=== PATIENT | female | born 1965 | race Caucasian/White ===

== ENCOUNTER 2022-04-11 10:22 | Outpatient (CLI) | payer BC, SELFPAY ==
[2022-04-11 14:30] LABS: Hepatitis C Virus Antibody* Negative (Negative)
[2022-04-11 14:34] LABS: HIV 1/2/P24 Combo Screen* Negative (Negative)
[2022-04-11 15:40] LABS: Albumin* 4.2 g/dL (3.3-5.0); Chloride* 107 mmol/L (96-114); Sodium* 140 mmol/L (135-149)
[2022-04-11 15:41] LABS: Potassium* 4.5 mmol/L (3.6-5.1)
[2022-04-11 15:43] LABS: Alanine Aminotransferase* 14 U/L (4-35); Alkaline Phosphatase* 82 U/L (40-150); Aspartate Amino Transferase* 19 U/L (12-35); Bilirubin Total* 0.3 mg/dL (0.1-1.5); Blood Urea Nitrogen* 13 mg/dL (7-30); Carbon Dioxide* 27 mmol/L (20-32); Cholesterol* 177 mg/dL (90-199); Creatinine* 0.8 mg/dL (0.5-1.5); Estimated Glomerular Filt Rate 85 ml/min; Total Protein* 6.4 g/dL (6.0-8.3); Triglycerides* 84 mg/dL (40-149)
[2022-04-11 15:44] LABS: Calcium* 9.6 mg/dL (8.4-10.6); HDL Cholesterol* 61 mg/dL (>=50); LDL Cholesterol Calculated 99 mg/dL (<100)
[2022-04-11 16:00] LABS: Glucose* 93 mg/dL (60-115)
[2022-04-11 16:17] LABS: Chlamydia DNA Amplified* NOT DETECTED (No Detected); GC DNA Amplified* NOT DETECTED (No Detected)
[2022-04-14 01:02] LABS: Rapid Plasma Reagin (RPR) Non Reactive (Non Reactive)
== END 2022-04-11 10:23 | disposition home or self-care (01) ==
PROVIDERS: Visit Provider Family Medicine
DX: Z01.419 Encounter for gynecological examination (general) (routine) without abnormal findings (principal); Z13.6 Encounter for screening for cardiovascular disorders; Z11.3 Encounter for screening for infections with a predominantly sexual mode of transmission; Z11.59 Encounter for screening for other viral diseases
CPT/HCPCS: 80053; 80061; 86592; 86703; 86803; 87491; 87591

== ENCOUNTER 2022-04-22 09:36 | Outpatient (CLI) | payer BC, SELFPAY ==
--- NOTE | 2022-04-22 09:45 | CRLHL7_ITS ---
For Patients: As a result of the Cures Act, medical imaging exams and procedure reports are released immediately into your electronic medical record. You may view this report before your referring provider. If you have questions, please contact your health care provider. DIGITAL DIAGNOSTIC BILATERAL MAMMOGRAM USING TOMOSYNTHESIS AND COMPUTER-AIDED DETECTION CLINICAL HISTORY: LEFT breast non-healing skin rash. COMPARISON: 01/01/2021, 11/09/2018, 06/09/2015. TECHNIQUE: Digital BILATERAL mammogram in four projections. Tomosynthesis and CAD utilized. BREAST COMPOSITION: There are areas of scattered fibroglandular density. FINDINGS: 3D CC/MLO mammograms submitted bilaterally. Normal fibroglandular tissue. No suspicious masses or architectural distortion. Benign calcifications. No adenopathy. IMPRESSION: Normal BILATERAL mammograms. No findings concerning for malignancy. RECOMMENDATIONS: Clinical follow-up. Routine screening mammography. Results and recommendations discussed with the patient. BI-RADS Category 2: Benign A lay language report of this examination will be provided to the patient. Dictated by Vern Finch MD @ 04/22/2022 10:57:25 AM /Dictated by: Vern Finch MD @ 04/22/2022 10:57:00 AM (Electronically Signed)
== END 2022-04-22 09:37 | disposition home or self-care (01) ==
LOC: MAMMO 09:37
PROVIDERS: Visit Provider Family Medicine
DX: R21 Rash and other nonspecific skin eruption (principal); L98.9 Disorder of the skin and subcutaneous tissue, unspecified
CPT/HCPCS: 77066; G0279

== ENCOUNTER 2023-02-16 03:06 | Emergency (ER) | payer BC, SELFPAY ==
[2023-02-16] VITALS (7 sets, daily range): BP systolic 113–142; BP diastolic 60–77; PULSE 61–74; RESP 16–18; TEMP 36.7–36.8; O2SAT 96–99
--- NOTE | 2023-02-16 03:09 | CRLHL7_ITS ---
For Patients: As a result of the Century Cures Act, medical imaging exams and procedure reports are released immediately into your electronic medical record. You may view this report before your referring provider. If you have questions, please contact your health care provider. INDICATION: Left sided abdominal pain since yesterday TECHNIQUE: CT Abdomen and pelvis with i.v. contrast. Coronal and sagittal reformats were obtained. CONTRAST: 92 mL Isovue 370 COMPARISON: None FINDINGS: Lower chest: Unremarkable. Liver: Scattered hepatic cysts are present with the largest in the left lateral segment measuring 3.5 cm. Spleen: Unremarkable. Pancreas: Unremarkable. Gallbladder: A punctate calcified gallstone is noted. Kidney: Small calyceal densities are present bilaterally which may be due to early excretion of contrast or small intrarenal stones. Adrenal: Unremarkable. Bowel: Diverticulosis of the descending and sigmoid colon is noted. Mild wall thickening of the gastric antrum is suspected. Gastritis or peptic ulcer disease and confirmation with barium GI series or endoscopy is recommended. The appendix is normal in appearance and size. Vascular: Unremarkable. Lymph: Unremarkable. Peritoneum: Unremarkable. No pneumoperitoneum is seen. No significant ascites is noted. Pelvis: There are two fibroids present in the uterine fundus with exophytic lesion measuring 1.5 cm. Soft tissue: Unremarkable. Bone: Grade 1 anterolisthesis of L3-4 is present. IMPRESSION: 1. Mild wall thickening of the gastric antrum is suspected. This may be due to a peristaltic wave or Dictated by Aron Richard MD @ 02/16/2023 3:51:41 AM Please note that all CT scans at this facility use dose modulation, iterative reconstruction, and/or weight-based dosing when appropriate to reduce radiation dose to as low as reasonably achievable. Dictated by: Aron Richard MD @ 02/16/2023 03:51:46 (Electronically Signed)
--- NOTE | 2023-02-16 03:14 | ED_ITS ---
HPI - Abdominal Pain General Time Seen by Provider: 03:14 Date Seen: 02/16/23 Chief Complaint: Abdominal Pain Stated Complaint: left side abdominal pain Time Seen by Provider: 02/16/23 03:07 Source: patient, RN notes reviewed and old records reviewed Mode of arrival: ambulatory Limitations: no limitations History of Present Illness HPI narrative: 57-year-old female who comes in with left-sided abdominal pain this started last night. Worse with movement. No nausea, vomiting, diarrhea, blood in the stools, fever, chills. Has not taken any medication for this. Denies prior surgeries. Related Data Previous Rx's Medication Instructions Recorded bupropion HCl 150 mg 24 hr tablet, 150 mg PO QAM #90 tabs 09/19/22 extended release (Wellbutrin XL) fluoxetine 10 mg capsule 10 mg PO QDAY #90 caps 09/19/22 gabapentin 100 mg capsule 100 mg PO TID #30 caps 09/19/22 trazodone 50 mg tablet 25 - 50 mg (0.5 - 1 x 50 mg) PO 09/19/22 QHS PRN insomnia #90 tabs pantoprazole 40 mg tablet,delayed 40 mg PO DAILY #30 tabs 02/16/23 release (Protonix) sucralfate 1 gram tablet (Carafate) 1 g PO QID #28 tabs 02/16/23 Allergies Allergy/AdvReac Type Severity Reaction Status Date / Time aspirin Allergy Severe Hives Verified 02/16/23 03:25 Review of Systems Status of ROS Reports: 10 or more systems reviewed and unremarkable except as noted in History and below PFSH PFSH Medical History (Updated 02/16/23 @ 03:56 by Dariel Chaney MD) Depression ?F32.A - Depression, unspecified (ICD-10) Anxiety ?F41.9 - Anxiety disorder, unspecified (ICD-10) Surgical History History of colonoscopy with polypectomy ?Z98.890 - Other specified postprocedural states (ICD-10) ?Z86.010 - Personal history of colonic polyps (ICD-10) Family History (Updated 04/05/22 @ 13:21 by Priscilla Steve ~ PSR) Maternal Grandmother Breast cancer Mother Mental disorder Social History (Updated 10/18/22 @ 13:22 by Priscilla Steve ~ PSR) Narrative: Non smoker Does not use illicit drugs Does not drink alcohol Smoking Status: Never smoker Second hand tobacco smoke exposure: No How often do you have a drink containing alcohol: never How often do you have six or more drinks on one occasion: Never AUDIT-C Alcohol total score: 0 Non-prescribed substance use: denies use Little interest or pleasure in doing things: not at all Feeling down, depressed, or hopeless: not at all Exam Narrative: Exam Narrative: General: Well-developed and well-nourished, no acute distress Head: Atraumatic and normocephalic Eyes: Pupils are equal reactive, extraocular motions intact, conjunctiva clear ENT: External nose and ears are normal, posterior pharynx without erythema or exudate Neck: No midline cervical tenderness, full spontaneous range of motion the neck, trachea midline, no adenopathy Heart: Regular rate and rhythm no murmurs or thrills Lungs: Clear to auscultation bilaterally without wheezes or crackles Abdomen: Soft, left lower quadrant and left mid abdominal tenderness, nondistended with active bowel sounds Musculoskeletal: No tenderness, deformity, or edema Neurologic: Awake, alert, and oriented x3, no gross focal neurologic deficits, cranial nerves intact as tested Psych: Mood and affect are appropriate Skin: No rashes Const: Vital Signs, click to edit/add: Vital Signs - 24 hr 02/16/23 03:20 02/16/23 03:23 02/16/23 03:23 Temperature 98.2 F 98.2 F Pulse Rate 61 Pulse Rate [Right Pulse Oximeter] 68 Respiratory Rate 18 16 Blood Pressure 113/60 Blood Pressure [Ri ght Upper Arm] 142/77 H Pulse Oximetry 99 96 Oxygen Delivery Me thod Room Air 02/16/23 03:34 Temperature 98.2 F Pulse Rate Pulse Rate [Right Pulse Oximeter] 64 Respiratory Rate 16 Blood Pressure Blood Pressure [Ri ght Upper Arm] 113/60 Pulse Oximetry 98 Oxygen Delivery Me thod Room Air Course Course Hospital Course: Patient seen examined, prior records are reviewed. Patient presents today with left-sided abdominal pain. On exam, vital a stable with no hypotension or fever, left mid abdominal tenderness. Symptoms are most consistent with diverticulitis, consider colitis, pancreatitis, ureteral stone as well. Labs in Toradol ordered along with CT scan. Reevaluation(s) Time of Reevaluation #1: 03:48 Reevaluation #1: Labs independently interpreted by me demonstrate normal CBC, reassuring basic panel, reassuring hepatic panel, normal lactate. CT scan demonstrates mild gastritis or peptic ulcer disease. Patient will be started on Carafate and Protonix and stable for discharge. Vital Signs Vital signs: Initial Vital Signs Temperature 98.2 F 02/16/23 03:20 Temperature Source Temporal Artery Scan 02/16/23 03:20 Vital Signs Temperature 98.2 F 02/16/23 03:20 Temperature 98.2 F 02/16/23 03:34 Pulse Rate 64 02/16/23 03:34 Respiratory Rate 16 02/16/23 03:34 Blood Pressure 113/60 02/16/23 03:34 Pulse Oximetry 98 02/16/23 03:34 Oxygen Delivery Method Room Air 02/16/23 03:34 MDM - Abdominal Pain Lab Data Labs: Lab Results 02/16/23 Range/Units 03:15 WBC 7.96 (4.50-11.00) K/uL RBC 4.28 (4.00-5.20) m/uL Hgb 12.3 (12.0-16.0) gm/dL Hct 38.3 (33.0-51.0) % MCV 90 (80-100) fL MCH 29 (26-34) pg MCHC 32 (32-36) gm/dL RDW Coeff of Li 13.6 (11.5-15.5) % Plt Count 285 (140-440) K/uL Neut % (Auto) 57.4 (42.0-72.0) % Lymph % (Auto) 31.7 (20-44) % [place] % (Auto) 6.5 (0.0-11.0) % Eos % (Auto) 3.1 (0.0-7.0) % Baso % (Auto) 0.4 (0.0-3.0) % Neut # (Auto) 4.57 (1.7-7.0) K/uL Lymph # (Auto) 2.52 (0.90-2.90) K/uL [place] # (Auto) 0.50 (0.00-0.90) K/UL Eos # (Auto) 0.25 (0.00-0.50) K/uL Baso # (Auto) 0.03 (0.00-0.30) K/uL Abs Immat Gran (auto) 0.07 (0.00-0.30) K/uL Imm/Tot Granulo (auto) 0.9 % Sodium 142 (135-149) mmol/L Potassium 4.4 (3.6-5.1) mmol/L Chloride 105 (96-114) mmol/L Carbon Dioxide 30 (20-32) mmol/L Anion Gap 7 (7-15) mEq/L BUN 21 (7-30) mg/dL Creatinine 1.0 (0.5-1.5) mg/dL Estimated Creat Clear 56.71 Estimated GFR 65 ml/min Glucose 91 (60-115) mg/dL Lactate 0.7 (0.5-1.9) mmol/L Calcium 9.5 (8.4-10.6) mg/dL Total Bilirubin 0.2 (0.1-1.5) mg/dL Direct Bilirubin 0.1 (0.0-0.5) mg/dL AST 23 (12-35) U/L ALT 18 (4-35) U/L Alkaline Phosphatase 89 (40-150) U/L Total Protein 6.7 (6.0-8.3) g/dL Albumin 4.0 (3.3-5.0) g/dL Discharge Plan Discharge Clinical Impression: Gastritis Patient Disposition: Home, Self-Care Condition: Stable Instructions: Gastritis (DC), Diet for Stomach Ulcers and Gastritis (ED) Activity Level: No Restrictions Discharge Diet: Other Prescriptions: New sucralfate [Carafate] 1 gram tablet 1 g PO QID Qty: 28 0RF pantoprazole [Protonix] 40 mg tablet,delayed release (DR/EC) 40 mg PO DAILY Qty: 30 0RF No Action fluoxetine 10 mg capsule 10 mg PO QDAY Qty: 90 3RF Rx Instructions: disp tab if cheaper bupropion HCl [Wellbutrin XL] 150 mg tablet extended release 24 hr 150 mg PO QAM Qty: 90 3RF trazodone 50 mg tablet 25 - 50 mg PO QHS PRN (Reason: insomnia) Qty: 90 3RF gabapentin 100 mg capsule 100 mg PO TID Qty: 30 12RF Follow Up/Referrals: Jodi Tran MD [Primary Care Provider] - Stand Alone Forms: MyHealth Info Instructions
[2023-02-16 03:20] LABS: Lactate* 0.7 mmol/L (0.5-1.9)
[2023-02-16] MEDS: KETOROLAC 15 MG/ML inj IVP (03:20)
[2023-02-16 03:22] LABS: Basophils Absolute Auto 0.03 K/uL (0.00-0.30); Basophils Percent Auto 0.4 % (0.0-3.0); Eosinophils Absolute Auto 0.25 K/uL (0.00-0.50); Eosinophils Percent Auto 3.1 % (0.0-7.0); Hematocrit 38.3 % (33.0-51.0); Hemoglobin* 12.3 gm/dL (12.0-16.0); Immature Granulocytes Abs Auto 0.07 K/uL (0.00-0.30); Immature Granulocytes Pct Auto 0.9 %; Lymphocytes Absolute Auto 2.52 K/uL (0.90-2.90); Lymphocytes Percent Auto 31.7 % (20-44); Mean Corpuscular HGB Conc 32 gm/dL (32-36); Mean Corpuscular Hemoglobin 29 pg (26-34); Mean Corpuscular Volume 90 fL (80-100); Monocytes Percent Auto 6.5 % (0.0-11.0); Neutrophils Absolute Auto 4.57 K/uL (1.7-7.0); Neutrophils Percent Auto 57.4 % (42.0-72.0); Platelet Count* 285 K/uL (140-440); RDW Coefficient of Variation % 13.6 % (11.5-15.5); Red Blood Count 4.28 m/uL (4.00-5.20); White Blood Count* 7.96 K/uL (4.50-11.00)
[2023-02-16 03:25] LABS: Slide Review Reflex No
[2023-02-16 03:37] LABS: Chloride* 105 mmol/L (96-114); Potassium* 4.4 mmol/L (3.6-5.1); Sodium* 142 mmol/L (135-149)
[2023-02-16 03:39] LABS: Bilirubin Direct* 0.1 mg/dL (0.0-0.5); Bilirubin Total* 0.2 mg/dL (0.1-1.5); Total Protein* 6.7 g/dL (6.0-8.3)
[2023-02-16 03:40] LABS: Alanine Aminotransferase* 18 U/L (4-35); Alkaline Phosphatase* 89 U/L (40-150); Anion Gap 7 mEq/L (7-15); Aspartate Amino Transferase* 23 U/L (12-35); Carbon Dioxide* 30 mmol/L (20-32); Est. Creatinine Clearance* 56.71; Estimated Glomerular Filt Rate 65 ml/min
[2023-02-16 03:41] LABS: Blood Urea Nitrogen* 21 mg/dL (7-30); Calcium* 9.5 mg/dL (8.4-10.6); Glucose* 91 mg/dL (60-115)
[2023-02-16] MEDS: PANTOPRAZOLE SODIUM 40 MG INJ IVP (04:00)
== END 2023-02-16 04:06 | disposition home or self-care (01) ==
PROVIDERS: Emergency Provider Family Medicine; PCP Family Medicine
DX: K29.70 Gastritis, unspecified, without bleeding (principal)
CPT/HCPCS: 36415; 74177; 80048; 80076; 81001; 83605; 83690; 85025; 94761; 96374; 96375; 99283; 99284; C9113; J1885; Q9967

== ENCOUNTER 2023-02-22 13:33 | Emergency (ER) | payer BC, SELFPAY ==
[2023-02-22 13:52] VITALS: BP 112/67; PULSE 62; RESP 18; TEMP 36.4; O2SAT 97; BMI 29.3
--- NOTE | 2023-02-22 13:57 | ED.GENADULT ---
HPI - General Adult General Date Seen: 02/22/23 Chief complaint: Abdominal Pain Stated complaint: Abdominal pain Time Seen by Provider: 02/22/23 13:54 Source: patient Mode of arrival: ambulatory Limitations: no limitations History of Present Illness HPI narrative: Patient is a 57-year-old woman who was seen here on February 16 at that time with a day or 2 of abdominal pain just to the left of the umbilicus. She had a CT scan at that time which was read as showing perhaps mild gastritis and she was started on Carafate and Protonix. She reports that the pain has persisted, it does not seem to be improved by those medications and in fact seems to gotten a little bit worse. She says she has a ?grape by her belly button. 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 She is not bothered at all by eating, her appetite has been normal and she has not had any nausea or vomiting, she has not had any changes in stools. She has not had any fevers or chills, no urinary symptoms. She notes that her pants feel too tight, as if her abdomen is distended. She has never had pain like this before. She went clinic today as she was not able to get follow-up scheduled with her regular doctor, she says that they did a brief exam, told her that they could not help her and recommended that she should come to the ER. Related Data Previous Rx's Medication Instructions Recorded bupropion HCl 150 mg 24 hr tablet, 150 mg PO QAM #90 tabs 09/19/22 extended release (Wellbutrin XL) fluoxetine 10 mg capsule 10 mg PO QDAY #90 caps 09/19/22 gabapentin 100 mg capsule 100 mg PO TID #30 caps 09/19/22 trazodone 50 mg tablet 25 - 50 mg (0.5 - 1 x 50 mg) PO 09/19/22 QHS PRN insomnia #90 tabs pantoprazole 40 mg tablet,delayed 40 mg PO DAILY #30 tabs 02/16/23 release (Protonix) sucralfate 1 gram tablet (Carafate) 1 g PO QID #28 tabs 02/16/23 cephalexin 500 mg capsule 500 mg PO QID #20 caps 02/22/23 Allergies Allergy/AdvReac Type Severity Reaction Status Date / Time aspirin Allergy Severe Hives Verified 02/22/23 07:14 Review of Systems Status of ROS: Reports: 6 or more systems reviewed and unremarkable except as noted in History and below [facility] Medical History Depression ?F32.A - Depression, unspecified (ICD-10) Anxiety ?F41.9 - Anxiety disorder, unspecified (ICD-10) Surgical History History of colonoscopy with polypectomy ?Z98.890 - Other specified postprocedural states (ICD-10) ?Z86.010 - Personal history of colonic polyps (ICD-10) Family History Maternal Grandmother Breast cancer Mother Mental disorder Social History Narrative: Non smoker Does not use illicit drugs Does not drink alcohol Smoking Status: Never smoker Second hand tobacco smoke exposure: No How often do you have a drink containing alcohol: never How often do you have six or more drinks on one occasion: Never AUDIT-C Alcohol total score: 0 Non-prescribed substance use: denies use Little interest or pleasure in doing things: not at all Feeling down, depressed, or hopeless: not at all Exam Narrative: Exam Narrative: Vital signs as noted above. In general, an alert, well-appearing patient. Head: Normocephalic, atraumatic. Eyes: Pupils are equal reactive. Extraocular movements are full. Conjunctivae are normal. ENT: Mucous membranes are moist. Neck: Supple without lymphadenopathy. Heart: Regular rate and rhythm. No murmur or rub. Lungs: Clear bilaterally. No increased work of breathing, crackles or wheezes. Abdomen: Abdomen does not appear visibly distended. Her umbilicus appears normal, no obvious hernia. To palpation, she has some induration just above the umbilicus although there is no surrounding erythema. This area is tender. The remainder for abdomen is completely nontender. Extremities: Well perfused. No edema. No calf tenderness. Pulses intact. Neurologic: Patient is alert and oriented to person and place. Speech is fluent. Face is symmetric. Moves all extremities equally. Affect: Normal. Skin: Warm and dry. Well perfused. Const: Vital Signs, click to edit/add: Vital Signs - 24 hr 02/22/23 13:52 Temperature 97.6 F Pulse Rate [Right Pulse Oximeter] 62 Respiratory Rate 18 Blood Pressure [Ri ght Upper Arm] 112/67 Pulse Oximetry 97 Oxygen Delivery Me thod Room Air Documenting provider has reviewed patient's vital signs: yes Course Course ED Course: After patient's exam, I went back and reviewed her CT scan. There is the area in the soft tissue around her umbilicus which is somewhat hyperdense. I talked with the radiologist who felt that this was consistent with inflammatory changes and cellulitis. He did not feel there was anything suggestive of abscess. I did look at this area with the ultrasound here, I do not see a focal fluid collection at this time. Patient is afebrile, she does not report any fevers or chills at home. I do not feel any fluctuance in this area, does feel indurated. For now, I think is reasonable to put her on antibiotics and see how she does with close outpatient follow-up. If she is not responding to antibiotics as expected, then an outpatient ultrasound would be reasonable to see if she is organizing into an abscess. I have discussed with her that if she develops any systemic symptoms such as fever, shaking chills, weakness, vomiting, etcetera or if she develops redness or worsening appearance of her abdomen I would want her CT to come back to the emergency department right away. I am giving her note to be off of work for couple of days as she has a fairly physical job. She declines the need for anything stronger for pain, will stick with ibuprofen and Tylenol for now. I am giving her a shot of Rocephin here, will discharge with Keflex and we have made her an appointment for 48 hour follow-up in clinic. Review of her labs from 02/16 were normal. Okay to discontinue the Carafate and Protonix if she would like, or she can continue them while she is taking ibuprofen. Reevaluation(s) Reevaluation #1: Collection at this time. Vital Signs Vital signs: Initial Vital Signs Temperature 97.6 F 02/22/23 13:52 Temperature Source Temporal Artery Scan 02/22/23 13:52 Pulse Rate 62 02/22/23 13:52 Pulse Rhythm Regular 02/22/23 13:52 Respiratory Rate 18 02/22/23 13:52 Blood Pressure 112/67 02/22/23 13:52 Blood Pressure Mean 82 02/22/23 13:52 Blood Pressure Position Sitting 02/22/23 13:52 Pulse Oximetry 97 02/22/23 13:52 Oxygen Delivery Method Room Air 02/22/23 13:52 Vital Signs Temperature 97.6 F 02/22/23 13:52 Pulse Rate 62 02/22/23 13:52 Respiratory Rate 18 02/22/23 13:52 Blood Pressure 112/67 02/22/23 13:52 Pulse Oximetry 97 02/22/23 13:52 Oxygen Delivery Method Room Air 02/22/23 13:52 Temperature 97.6 F 02/22/23 13:52 Pulse Rate 62 02/22/23 13:52 Respiratory Rate 18 02/22/23 13:52 Blood Pressure 112/67 02/22/23 13:52 Pulse Oximetry 97 02/22/23 13:52 Oxygen Delivery Method Room Air 02/22/23 13:52 Discharge Plan Discharge Clinical Impression: Abdominal wall cellulitis Patient Disposition: Home, Self-Care Condition: Stable Instructions: Cellulitis (ED) Additional Instructions: Antibiotic as prescribed. Off work for the next couple of days, take things kind of easy. Ibuprofen 400 mg plus Tylenol 1000 mg 3 times daily as needed for pain. If you are worsening, have severe pain, significant redness or new symptoms such as fever, shaking chills, vomiting or other significant new symptoms, return to the emergency department right away. Otherwise, follow up appointment is scheduled at the [facility] on 02/24 with a 3:30pm appointment time. Please arrive 10 minutes early to check in and complete any paperwork. If you have any questions or need to reschedule, please call [phone]. [facility] [address] [place] [address] You can discontinue the Carafate and Protonix if he would like, or you can keep taking them while you are taking ibuprofen to protect your stomach. Prescriptions: New cephalexin 500 mg capsule 500 mg PO QID Qty: 20 0RF No Action fluoxetine 10 mg capsule 10 mg PO QDAY Qty: 90 3RF Rx Instructions: disp tab if cheaper bupropion HCl [Wellbutrin XL] 150 mg tablet extended release 24 hr 150 mg PO QAM Qty: 90 3RF trazodone 50 mg tablet 25 - 50 mg PO QHS PRN (Reason: insomnia) Qty: 90 3RF gabapentin 100 mg capsule 100 mg PO TID Qty: 30 12RF sucralfate [Carafate] 1 gram tablet 1 g PO QID Qty: 28 0RF pantoprazole [Protonix] 40 mg tablet,delayed release (DR/EC) 40 mg PO DAILY Qty: 30 0RF Follow Up/Referrals: Jodi Tran MD [Primary Care Provider] - Stand Alone Forms: MyHealth Info Instructions
[2023-02-22] MEDS: cefTRIAXone 1 GM VIAL IM (15:07)
[2023-02-22] MEDS: LIDOCAINE 1% 5 ml (pf) 5 ML VIAL 2.1 ML IM (15:07)
== END 2023-02-22 15:10 | disposition home or self-care (01) ==
PROVIDERS: Emergency Provider Emergency Medicine; PCP Family Medicine
DX: L03.311 Cellulitis of abdominal wall (principal)
CPT/HCPCS: 96372; 99284; J0696

== ENCOUNTER 2023-08-24 06:33 | Outpatient (CLI) | payer OTHER, BC, SELFPAY ==
--- NOTE | 2023-08-24 07:15 | MR_ITS ---
[address] [address] Phone:?[phone] Fax:?[phone] Referring Physician Information: Ismael Carter M.D. [address] [facility] [address] Phone:?[phone] Fax:?[phone] Patient:Shawn Beltran.O.B:?1965 Sex:?Female Phone:?[phone] [facility] MRN:?[id number] Exam Date:?08/24/2023 EXAM: MRI OF THE RIGHT SHOULDER CLINICAL INFORMATION: The patient is a 58-year-old with right shoulder pain. Evaluate for injury to the muscle, fascial, or tendon structures. Evaluate for biceps injury. PRIOR SURGERY: None reported. COMPARISON STUDIES: There are no prior studies available for comparison. TECHNICAL INFORMATION: Using a 1.5T MR scanner and a localizing shoulder surface coil: 3.0 mm?coronal obliques: PD, T2, STIR 3.0 mm?sagittal obliques: PD, T2 3.0 mm?axials: PD, T2 FINDINGS: Articular/Extraarticular collections: Effusion: Mild to moderate. Subacromial/subdeltoid: Mild fluid is seen within the subacromial/subdeltoid bursa, in keeping with changes of bursitis. Subcoracoid: No evidence for bursitis. Osseous structures: Proximal humerus: No evidence for bony injury to the proximal humerus can be seen. There is no evidence for greater tuberosity fracture. No Hill-Sachs or reverse Hill-Sachs deformity is seen. Glenoid: No acute bony abnormality of the glenoid fossa or glenoid neck can be seen. Acromioclavicular joint: Mild to moderate changes of acromioclavicular joint arthrosis are present. Coracoacromial arch: Acromion morphology: Type II. No evidence for os acromiale. Acromiohumeral space: Mildly narrowed. Coracohumeral space: Moderately narrowed. Rotator cuff and deltoid: Supraspinatus: Mild to moderate changes of supraspinatus tendinosis are present. There is no evidence for full or partial-thickness tearing. No atrophic changes of the supraspinatus muscle belly are present. Infraspinatus: Mild to moderate infraspinatus tendinosis can be seen. There is no evidence for full or partial-thickness tearing. No atrophic changes of the infraspinatus muscle belly are seen. Teres minor: No evidence for tendinosis, tearing, or associated muscle belly atrophy. Subscapularis: Mild to moderate subscapularis tendinosis can be seen. There is no evidence for full or partial-thickness tearing. No atrophic changes of the subscapularis muscle belly are noted. Deltoid: No evidence for strain or tearing. Biceps tendon: The intra-articular and biceps sulcus portions of the biceps tendon are normal. There is no evidence for rupture, dislocation, or subluxation. Glenohumeral joint and labrum: Articular Cartilage: Chondromalacia and chondral thinning along the articular surfaces of the glenohumeral articulation can be seen without definite full- thickness chondral defect. No osteoarthritic changes are present. Labrum: Degeneration, blunting, and irregularity of the glenoid labrum can be seen with poorly defined tearing of the superior portion of the labrum noted on coronal series 6 image 14. No definite paralabral ganglion cyst formation is identified. Capsular Soft Tissues: Thickening of the capsular structures of the glenohumeral articulation can be seen in the region of the axillary recess and rotator cuff interval. The findings are consistent with changes of adhesive capsulitis. CONCLUSION: 1. Mild to moderate supraspinatus, infraspinatus, and subscapularis tendinosis. No full or partial-thickness rotator cuff tearing is seen. 2. Nonspecific capsular thickening, in keeping with adhesive capsulitis. 3. Mild to moderate acromioclavicular joint arthrosis with mild narrowing of the acromiohumeral space. 4. Mild to moderate glenohumeral joint effusion and mild subacromial/subdeltoid bursitis. 5. The long head of the biceps tendon appears intact. 6. Degeneration of the glenoid labrum with poorly defined tearing of the superior portion. [facility] Electronically signed on 08/24/2023 3:13:00 PM by Andrews Coleman M.D.
== END 2023-08-24 06:34 | disposition home or self-care (01) ==
LOC: MRI 06:34
PROVIDERS: PCP Family Medicine; Visit Provider Orthopaedic Surgery Sports Medicine
DX: M25.511 Pain in right shoulder (principal); M75.101 Unspecified rotator cuff tear or rupture of right shoulder, not specified as traumatic; M25.411 Effusion, right shoulder; M75.51 Bursitis of right shoulder; S46.211A Strain of muscle, fascia and tendon of other parts of biceps, right arm, initial encounter
CPT/HCPCS: 73221

== ENCOUNTER 2024-05-22 07:49 | Outpatient (CLI) | payer BC, SELFPAY ==
--- OUTSIDE RECORDS SUMMARY | 2024-05-22 08:07 | XMS_ITS | Clinical Summary ---
Author Organization [employer] [facility] [employer] [facility] Address [place], [place] [address] Care Team Providers Care Slide Fastener Repairer Name Role Phone [facility] Primary Care Provider [phone] Allergies Active Allergy Reactions Criticality Noted Date Comments Aspirin Hives,Throat Swelling/Closing,Angioedema High 02/17/2017 Medications Medication Sig Dispensed Refills Start Date End Date Status buPROPion (WELLBUTRIN XL) 150 mg Extended-Release tablet 0 12/19/2016 A ctive Active Problems Problem Noted Date Diagnosed Date Hyperopia of both eyes with astigmatism and pres byopia 02/17/2017 Social History Tobacco Use Types Packs/Day Years Used Date Smoking Tobacco: Former Smokeless Tobacco: Never Comments:2002 Sex and Gender Information Value Date Recorded Sex Assigned at Not on file Gender Identity Not on file Sexual Orientation Not on file Obstetrics History Last Filed Vital Signs Vital Sign Reading Time Taken Comments Blood Pressure 128/62 01/06/2024 11:16 PM CDT Pulse 75 01/06/2024 8:33 PM CDT Temperature 36.9 C (98.5 F) 01/06/2024 8:33 PM CDT Respiratory Rate 18 01/06/2024 8:33 PM CDT Oxygen Saturation 99% 01/06/2024 8:33 PM CDT Inhaled Oxygen Concentration - - Weight 86.6 kg (190 lb 14.4 oz) 01/06/2024 8:33 PM CDT Height 170.2 cm (5' 7) 01/06/2024 8:33 PM CDT Body Mass Index 29.9 01/06/2024 8:33 PM CDT Plan of Treatment Health Maintenance Due Date Last Done Comments Tdap 1974 Depression screening for age 12+ 1975 HIV for age 15-65 1978 BMI (ht and wt on same day) for age 18+ 1981 Hepatitis C screening for ag e 18-79 1981 Tetanus booster 1983 Colonoscopy through age 75 2008 Lipids for age 45-75 2008 Mammogram for age 45-75 06/08/2010 06/08/2009 Zoster (shingles) series for age 50+ (1 of 2) 2013 Pap test for age 21-65 12/12/2023 , 10/08/2018, 05/08/2015 COVID-19 vaccine series ( season) 2024 Influenza for age 50-64 02/18/2024 Pneumococcal series for age 6-64 Aged Out No longer eligible b ased on patient's age to complete this topic Procedures Procedure Name Priority Date/Time Associated Diagnosis Comments CERTIFIED PATHOLOGY ASSISTANT THIN PREP PAP SCREEN IMAGED Routine 12/11/2020 8:00 AM CDT XR MAMMO BILAT SCREEN FFDM (IA) Routine 06/08/2009 11:58 AM GUEST HISTORY CLERK Other Screening Mammogram from Last 3 Months or Most Recently Relevant to Health Maintenance Results * CERTIFIED PATHOLOGY ASSISTANT THIN PREP PAP SCREEN IMAGED (12/11/2020 8:00 AM CDT) Case Report Gynecologic Cytology Report Case: [id number] Authorizing Provider: Peter Wilson MD Collected: 12/11/2020 0800 Ordering Location: [facility] Received: 12/14/2020 0816 First Screen: Ethel Sandoval Pathologist: Luci Bergman MD Specimen: CERTIFIED PATHOLOGY ASSISTANT ThinPrep Vial Screening, Cervical/Vaginal 12/22/2020 1:44 PM CDT [facility] INTERPRETATION/ RESULT NEGATIVE FOR INTRAEPITHELIAL LESION OR MALIGNANCY (NIL) (none) 12/22/2020 1:44 PM CDT [facility] R NON-NEOPLASTIC FINDING(S) Parakeratosis 12/22/2020 1:44 PM CDT [facility] SPECIMEN ADEQUACY Satisfactory for evaluation No endocervical component seen 12/22/2020 1:[address] [facility] HPV REQUEST HPV if ASCUS 12/22/2020 1:44 PM CDT [facility] Last Pap Date 12/22/2020 1:44 PM CDT [facility] Comment:09/2018 Last Pap Result 1:44 PM CDT [facility] Comment:Normal Menstrual Status 12/22/2020 1:[address] [facility] Comment:Menopause Additional Information 12/22/2020 1:44 PM CDT [facility] Comment: Interpreted at [facility] - [address], [place] [address] Automated Review Successful 12/22/2020 1:[address] [facility] Comment:Specimen processed s uccessfully by automated collision center manager device, ThinPrep Imaging System, [employer] Note The pap test is a screening technique, not a diagnostic procedure. It is used primarily to screen for squamous cancers and precursor lesions. Published studies have shown that it is subject to both false negative and false positive results. The pap test should not be used as the sole means to diagnose or exclude pre-malignant and malignant lesions. 12/22/2020 1:44 PM CDT [facility] Other (Cervical/Vagina l) 12/11/2020 8:00 AM CDT 12/14/2020 8:16 AM CDT Peter Wilson MD PATHOLOGY/CYTOLO GY [facility] [address] [place] [address], [place] * XR MAMMO BILAT SCREEN FFDM (06/08/2009 11:58 AM GUEST HISTORY CLERK) MAMMOGRAM ACR 1 Negative Anatomical Region Laterality Modality BREASTS, Breast Left, Breast Right Bilateral Mammography 06/08/2009 11:5 8 AM GUEST HISTORY CLERK Narrative 06/10/2009 3:47 PM GUEST HISTORY CLERK BILATERAL FULL-FIELD SCREENING DIGITAL MAMMOGRAPHY WITH COMPUTER-AIDED DETECTION 06/08/2009 INDICATION: Screening. COMPARISON: None. TECHNIQUE: Full-field screening digital mammography with computer-aided detection. FINDINGS: Scattered residual breast parenchyma bilaterally. Nothing for malignancy. ASSESSMENT: ACR 1 Negative. Procedure Note Tony Kwan Sima - 06/10/2009 BILATERAL FULL-FIELD SCREENING DIGITAL MAMMOGRAPHY WITH COMPUTER-AIDEDDETECTION 06/08/2009 INDICATION: Screening. COMPARISON: None. TECHNIQUE: Full-field screening digital mammography with computer- aideddetection. FINDINGS: Scattered residual breast parenchyma bilaterally. Nothing formalignancy. ASSESSMENT: ACR 1 Negative. Vern Baker MD MAMMO from Last 3 Months or Most Recently Relevant to Health Maintenance Care Teams Slide Fastener Repairer Relationship Specialty Start Date End Date [address] [id number] PCP - General 01/06/24
--- NOTE | 2024-05-22 08:15 | CRLHL7_ITS ---
For Patients: As a result of the Century Cures Act, medical imaging exams and procedure reports are released immediately into your electronic medical record. You may view this report before your referring provider. If you have questions, please contact your health care provider. Indication: Dorsalgia Technique: Noncontrast sagittal and axial T1, T2, and sagittal STIR sequences are provided. Comparison: Lumbar radiographs 03/27/2024 Findings: Mild exaggeration of lumbar lordosis. Degenerative grade 1 anterolisthesis at L3-4. No aggressive osseous lesions. No fractures. No significant paraspinal soft tissue abnormalities. The conus medullaris is normal in signal and location. Modic type 1 endplate degenerative changes and anterior osteophytic spurring at L1-2. Cholelithiasis. Small right hepatic cyst. T12-L1: Normal disc and facet joints. No significant spinal canal stenosis or neural foraminal narrowing. L1-2: Disc desiccation. Mild disc height loss and mild circumferential disc bulge indents the thecal sac. No significant spinal canal stenosis or neural foraminal narrowing. L2-3: Mild disc bulge and facet arthrosis. 3 millimeter left neural foramen disc protrusion. No significant spinal canal or neural foraminal narrowing. L3-4: Grade 1 anterolisthesis with uncovering of the disc and small left foraminal high-intensity zone. Advanced facet arthrosis and ligamentum flavum buckling resulting in moderate spinal canal stenosis. Moderate left neural foraminal narrowing and possible irritation of the exiting left L3 nerve roots. No right neural foraminal narrowing. Bone marrow edema of the bilateral facet joints likely due to acute inflammation/stress reaction. L4-5: There is a disc bulge with right central high-intensity zone and small disc extrusion with slight cephalad migration (series 2, image 7). Advanced facet arthrosis with fusion across the right facet joint. No spinal canal stenosis or neural foramen narrowing. L5-S1: Circumferential disc bulge and endplate osteophytic ridging. Prominent left anterior osteophyte. Left foraminal-extraforaminal high-intensity zone contacts the exiting left L5 nerve roots and results in mild foraminal stenosis. No right neural foramen narrowing. Impression: 1. No fractures. Degenerative grade 1 anterolisthesis at L3-4. Modic type 1 degenerative changes at L1-2. Bone marrow edema in the L3-4 facet joints likely due to acute inflammation/stress reaction. 2. At L5-S1, disc bulge contacts the exiting left L5 nerve roots and results in mild foraminal stenosis. 3. At L4-5, there is a mild disc bulge with right central high-intensity zone and small disc extrusion with minimal cephalad migration. No significant spinal canal stenosis or neural foraminal narrowing. 4. At L3-4, there is moderate spinal canal stenosis and moderate left neural foraminal narrowing with possible irritation of the exiting left L3 nerve roots. 5. At L2-3, there is a small left foraminal disc protrusion without significant foraminal stenosis or nerve impingement. Dictated by Vern George MD @ 05/24/2024 9:21:30 PM (Electronically Signed)
== END 2024-05-22 07:50 | disposition home or self-care (01) ==
LOC: MRI 07:50
PROVIDERS: PCP Family Medicine; Visit Provider Internal Medicine
DX: M54.9 Dorsalgia, unspecified (principal); M51.27 Other intervertebral disc displacement, lumbosacral region; M48.061 Spinal stenosis, lumbar region without neurogenic claudication
CPT/HCPCS: 72148

== ENCOUNTER 2024-07-26 08:30 | Outpatient (RCR) | payer OTHER, SELFPAY | END 2024-11-23 23:59 | disposition home or self-care (01) | PROVIDERS: PCP Family Medicine; Visit Provider Internal Medicine | DX: M54.50 Low back pain, unspecified (principal); M54.6 Pain in thoracic spine; Z51.89 Encounter for other specified aftercare | CPT/HCPCS: 97110; 97140; 97162 ==

== ENCOUNTER 2024-10-28 12:06 | Outpatient (CLI) | payer OTHER, SELFPAY | END 2024-10-28 12:07 | disposition home or self-care (01) | PROVIDERS: PCP Family Medicine; Visit Provider Family Medicine | DX: Z00.00 Encounter for general adult medical examination without abnormal findings (principal); Z13.228 Encounter for screening for other metabolic disorders; Z13.6 Encounter for screening for cardiovascular disorders; Z11.59 Encounter for screening for other viral diseases | CPT/HCPCS: 80053; 80061; 86803 ==

== ENCOUNTER 2024-10-30 00:14 | Emergency (ER) | payer OTHER, SELFPAY ==
--- OUTSIDE RECORDS SUMMARY | 2024-10-30 00:16 | XMS_ITS | Clinical Summary ---
Author Organization [employer] [facility] [employer] [facility] Address [address] [place] [id number] Care Team Providers Care High School Biology Teacher Name Role Phone [facility] Primary Care Provider [phone] Allergies Active Allergy Reactions Criticality Noted Date Comments Aspirin Hives,Throat Swelling/Closing,Angioedema High 02/17/2017 Medications buPROPion (WELLBUTRIN XL) 150 mg Extended-Release tablet 0 12/19/2016 Active Active Problems Problem Noted Date Diagnosed Date Hyperopia of both eyes with astigmatism and pres byopia 02/17/2017 Social History Tobacco Use Types Packs/Day Years Used Date Smoking Tobacco: Former Smokeless Tobacco: Never Comments:2002 Interpersonal Safety Answer Date Record ed Are you being hit, kicked, p ushed or yelled at (see row info)? No 01/06/2024 Interpersonal Safety Abuse 12 - 18 Not on file 01/06/2024 Interpersonal Safety Ambulatory Vulnerability No t on file 01/06/2024 Comments No Sex and Gender Information Value Date Recorded Sex Assigned at Not on file Legal Sex Female 6:44 AM EXTERMINATOR TERMITE Gender Identity Not on file Sexual Orientation [...] age 18+ 1981 Hepatitis C screening for age 18-79 1981 Tetanus booster 1983 Colonoscopy through age 75 2008 Lipids for age 45-75 2008 Mammogram for age 45-75 06/08/2010 06/08/2009 Pneumococcal series for age 50+ (1 of 1 - PCV) 2013 Zoster (shingles) series for age 50+ (1 of 2) 2013 Pap test for age 21-65 12/12/2023 , 10/08/2018, 05/08/2015 COVID-19 vaccine series ( - season) 2024 Influenza Vaccine (Season Ended) 2025 RSV vaccine for adults or pr egnancy (1 - 1-dose 75+ series) 2038 Procedures Procedure Name Priority Date/Time Associated Diagnosis Comments MARKETING PERFORMANCE ANALYST THIN PREP PAP SCREEN IMAGED Routine 12/11/2020 8:00 AM CDT XR MAMMO BILAT SCREEN FFDM (IA) Routine 06/08/2009 11:58 AM EXTERMINATOR TERMITE Other Screening Mammogram from Last 3 Months or Most Recently Relevant to Health Maintenance Results * MARKETING PERFORMANCE ANALYST THIN PREP PAP SCREEN IMAGED (12/11/2020 8:00 AM CDT) Case Report Gynecologic Cytology Report Case: [id number] Authorizing Provider: Peter Wilson MD Collected: 12/11/2020 0800 Ordering Location: [facility] Received: 12/14/2020 0816 First Screen: Ethel Sandoval Pathologist: Luci Bergman MD Specimen: MARKETING PERFORMANCE ANALYST ThinPrep Vial Screening, Cervical/Vaginal 12/22/2020 1:44 PM CDT [facility] INTERPRETATION/ RESULT NEGATIVE FOR INTRAEPITHELIAL LESION OR MALIGNANCY (NIL) (none) 12/22/2020 1:44 PM CDT [facility] at 1344 CDT OTHER NON-NEOPLASTIC FINDING(S) Parakeratosis 12/22/2020 1:44 PM CDT [facility] SPECIMEN ADEQUACY Satisfactory for evaluation No endocervical component seen 12/22/2020 1:44 PM CDT [facility] HPV REQUEST HPV if ASCUS 12/22/2020 1:44 PM CDT [facility] Last Pap Date 12/22/2020 1:44 PM CDT [facility] Comment:09/2018 Last Pap Result 1:44 PM CDT [facility] Comment:Normal Menstrual Status 12/22/2020 1:44 PM CDT [facility] Comment:Menopause Additional Information 12/22/2020 1:44 PM CDT [facility] Comment: Interpreted at [facility], Central Laboratory - [address] [facility] [address] [address] Automated Review Successful 12/22/2020 1:44 PM CDT [facility] Comment:Specimen processed s uccessfully by automated kelp gatherer device, ThinPrep Imaging System, [employer] Note The pap test is a [...] and malignant lesions. 12/22/2020 1:44 PM CDT [facility] Other (Cervical/Vagina l) 12/11/2020 8:00 AM CDT 12/14/2020 8:16 AM CDT us Peter Wilson MD PATHOLOGY/CYTOLOGY Final Result [facility] [address] [place] [address], [place] * XR MAMMO BILAT SCREEN FFDM (06/08/2009 11:58 AM EXTERMINATOR TERMITE) MAMMOGRAM ACR 1 Negative Anatomical Region Laterality Modality BREASTS, Breast Left, Breast Right Bilateral Mammography 06/08/2009 11:5 8 AM EXTERMINATOR TERMITE Narrative 06/10/2009 3:47 PM EXTERMINATOR TERMITE BILATERAL FULL-FIELD SCREENING DIGITAL MAMMOGRAPHY WITH COMPUTER-AIDED DETECTION 06/08/2009 INDICATION: Screening. COMPARISON: None. TECHNIQUE: Full-field screening digital mammography with computer-aided detection. FINDINGS: Scattered residual breast parenchyma bilaterally. Nothing for malignancy. ASSESSMENT: ACR 1 Negative. Procedure Note Tony Kwan - 06/10/2009 BILATERAL FULL-FIELD SCREENING DIGITAL MAMMOGRAPHY WITH COMPUTER-AIDEDDETECTION 06/08/2009 INDICATION: Screening. COMPARISON: None. TECHNIQUE: Full-field screening digital mammography with computer- aideddetection. FINDINGS: Scattered residual breast parenchyma bilaterally. Nothing formalignancy. ASSESSMENT: ACR 1 Negative. us Vern Baker MD MAMMO Final Result from Last 3 Months or Most Recently Relevant to Health Maintenance Insurance [facility] [employer] Care Teams High School Biology Teacher Relationship Specialty Start Date End Date [facility] [address] [place] [address] PCP - General 01/06/24
[2024-10-30 00:25] VITALS: BP 125/81; PULSE 70; RESP 20; TEMP 36.2; O2SAT 95; BMI 30.4
--- OUTSIDE RECORDS SUMMARY | 2024-10-30 01:42 | XMS_ITS | Clinical Summary ---
Author Organization [employer] [facility] [employer] Address [address] [place] [address] Care Team Providers Care Seismometer Operator Name Role Phone [facility] Primary Care Provider [phone] Allergies Active Allergy Reactions Criticality Noted Date [...] on file Legal Sex Female 6:44 AM REPAIRER RESISTANCE WELDING MACHINES Gender Identity Not on file Sexual Orientation [...] Procedure Name Priority Date/Time Associated Diagnosis Comments OWNER OPERATOR TANKER TRUCK DRIVER THIN PREP PAP SCREEN IMAGED Routine 12/11/2020 8:00 AM CDT XR MAMMO BILAT SCREEN FFDM (IA) Routine 06/08/2009 11:58 AM REPAIRER RESISTANCE WELDING MACHINES Other Screening Mammogram from Last 3 Months or Most Recently Relevant to Health Maintenance Results * OWNER OPERATOR TANKER TRUCK DRIVER THIN PREP PAP SCREEN IMAGED (12/11/2020 8:00 AM CDT) Case Report Gynecologic Cytology Report Case: [id number] Authorizing Provider: Peter Wilson MD Collected: 12/11/2020 0800 Ordering Location: [facility] Received: 12/14/2020 0816 First Screen: Ethel Sandoval Pathologist: Luci Bergman MD Specimen: OWNER OPERATOR TANKER TRUCK DRIVER ThinPrep Vial Screening, Cervical/Vaginal 12/22/2020 1:44 PM CDT [facility] INTERPRETATION/ RESULT NEGATIVE FOR INTRAEPITHELIAL LESION OR MALIGNANCY (NIL) (none) 12/22/2020 1:44 PM CDT [facility] at 1344 CDT OTHER NON-NEOPLASTIC FINDING(S) Parakeratosis 12/22/2020 1:44 PM CDT [facility] SPECIMEN ADEQUACY Satisfactory for evaluation No endocervical component seen 12/22/2020 1:44 PM CDT [facility] HPV REQUEST HPV if ASCUS 12/22/2020 1:44 PM CDT [facility] Last Pap Date 12/22/2020 1:44 PM CDT [facility] Comment:09/2018 Last Pap Result 1:44 PM CDT [facility] Comment:Normal Menstrual Status 12/22/2020 1:44 PM CDT [facility] Comment:Menopause Additional Information 12/22/2020 1:44 PM CDT [facility] Comment: Interpreted at [facility], Central Laboratory - [address] [facility] [address] [address] Automated Review Successful 12/22/2020 1:44 PM CDT [facility] Comment:Specimen processed s uccessfully by automated gambling supervisor device, ThinPrep Imaging System, [employer] Note The pap test is a [...] and malignant lesions. 12/22/2020 1:44 PM CDT [facility] Other (Cervical/Vagina l) 12/11/2020 8:00 AM CDT 12/14/2020 8:16 AM CDT us Peter Wilson MD PATHOLOGY/CYTOLOGY Final Result [facility] [address] [place] [address], [place] * XR MAMMO BILAT SCREEN FFDM (06/08/2009 11:58 AM REPAIRER RESISTANCE WELDING MACHINES) MAMMOGRAM ACR 1 Negative Anatomical Region Laterality Modality BREASTS, Breast Left, Breast Right Bilateral Mammography 06/08/2009 11:5 8 AM REPAIRER RESISTANCE WELDING MACHINES Narrative 06/10/2009 3:47 PM REPAIRER RESISTANCE WELDING MACHINES BILATERAL FULL-FIELD SCREENING DIGITAL MAMMOGRAPHY WITH COMPUTER-AIDED [...] Most Recently Relevant to Health Maintenance Insurance [facility] [employer] Care Teams Seismometer Operator Relationship Specialty Start Date End Date [facility] [address] [place] [address] PCP - General 01/06/24
[2024-10-30] MEDS: KETOROLAC 30 MG/ML inj IM (01:51)
[2024-10-30] MEDS: CYCLOBENZAPRINE HCL 10 MG TABLET 5 MG PO (01:51)
[2024-10-30] MEDS: HYDROCODONE-ACETAMIN 5-325 MG 1 TAB PO (01:51)
--- NOTE | 2024-10-30 02:01 | ED_ITS ---
HPI - General Adult General Chief complaint: Fall/Minor Trauma Stated complaint: Fall Time Seen by Provider: 10/30/24 01:19 Source: patient and EMS Mode of arrival: EMS Limitations: no limitations History of Present Illness HPI narrative: 59-year-old female called EMS after she fell in her work parking lot. She reports the incident happened around 11:30 p.m.. She was walking out of work, has been having some problems with her IT band and pain in her right leg. She reports that she got off balance and started to tip forward and started running to try to catch and rebound her weight. Unfortunately, this was not successful and she fell forward onto her hands. Fall was from standing height onto concrete parking lot, witnessed by bystanders. Did not hit head, no loss of consciousness. Fell onto her outstretched wrists but does not have any pain in her wrists. Pain is in the right lumbar area. Did not fall onto this area. Was able to get herself up. EMS confirms her story and reports that she was able to transfer onto the cot without difficulty. No neurological changes, loss of consciousness or fluctuating mentation. No suspicion for intoxication. No recent changes in medication. Denies focal neurological changes. No focal weakness. Did not try any interventions on route to help with symptoms. Pain achy, constant, slightly better with leaning forward. Reports her past medical history is notable for depression and anxiety. States that her only home medications are bupropion and Prozac. Nonsmoker. No prior history of back surgeries. ROS notable for the musculoskeletal symptoms as above, otherwise denies times 12 systems. Related Data Previous Rx's ?Medication ?Instructions ?Recorded bupropion HCl 150 mg 24 hr tablet, 150 mg PO QAM #90 tabs 10/28/24 extended release (Wellbutrin XL) fluoxetine 40 mg capsule 40 mg PO QDAY #90 caps 10/28/24 hydroxyzine HCl 10 mg tablet 10 - 30 mg (1 - 3 x 10 mg) PO TID 10/28/24 PRN itching #180 tabs semaglutide (weight loss) 0.25 0.25 mg (0.5 mL) subcut QWEEK #2 mL 10/29/24 mg/0.5 mL subcutaneous pen injector (Wegovy) cyclobenzaprine 10 mg tablet 5 - 10 mg (0.5 - 1 x 10 mg) PO BID 05/14/25 PRN muscle spasm #20 tabs ketorolac 10 mg tablet 10 mg PO Q6H PRN pain 5 days #20 10/30/24 tabs Allergies Allergy/AdvReac Type Severity Reaction Status Date / Time aspirin Allergy Severe Hives Verified 10/30/24 00:30 PFSH PFSH Medical History Arthritis of right acromioclavicular joint ?M19.011 - Primary osteoarthritis, right shoulder (ICD-10) Surgical History History of carpal tunnel surgery ?Z98.890 - Other specified postprocedural states (ICD-10) Family History Maternal Grandmother Breast cancer Mother Mental disorder Depression Social History Narrative: Former smoker-quit 2004 Does not use illicit drugs Does not drink alcohol Smoking Status: Former smoker What tobacco products do you use: cigarettes Smoking quit date/years: >15 years ago Do you use any of these nicotine containing products: None Second hand tobacco smoke exposure: No How often do you have a drink containing alcohol: never How often do you have six or more drinks on one occasion: Never AUDIT-C Alcohol total score: 0 Non-prescribed substance use: denies use service: No Exam Const: Vital Signs, click to edit/add: Vital Signs - 24 hr 10/30/24 00:25 Temperature 97.1 F L Pulse Rate [Left P ulse Oximeter] 70 Respiratory Rate 20 Blood Pressure [Le ft Upper Arm] 125/81 Pulse Oximetry 95 Oxygen Delivery Me thod Room Air Documenting provider has reviewed patient's vital signs: yes Common normals: alert General appearance: well kempt Other: Good historian. Clear sensorium. Answers questions appropriately. HENMT: Common normals: normocephalic and oropharynx normal Head and scalp: normocephalic Face and sinus: normal facial exam Eye: Common normals: conjunctivae normal General eye: normal appearance of both eyes Conjunctiva: conjunctiva(e) normal Neck & C-Spine: Common normals: full ROM and no lymphadenopathy General: normal visual inspection Chest: Common normals: inspection of chest normal Resp: Common normals: normal respiratory effort, no use of accessory muscles and clear to auscultation bilaterally Effort & inspection: able to speak in complete sentences Auscultation: clear to auscultation bilaterally Cardio: Common normals: regular rate, regular rhythm, S1 normal heart sound, S2 normal heart sound and no murmurs Rate: regular rate Rhythm: regular rhythm Heart sounds: S1 normal and S2 normal GI: Common normals: Normal to inspection, nondistended, normoactive bowel sounds present and soft to palpation Palpation: soft : Common normals: no CVA tenderness Bladder/kidney exam: no CVA tenderness Back & Pelvis: Common normals: no CVA tenderness, thoracic and lumbar spine normal to inspection and straight leg raise negative bilaterally Other: No point bony tenderness to the thoracolumbar spine. Antalgic gait noted. Straight leg lift is actually negative as well. Pain worsens with back extension. On straight leg lift, patient has most pain between 0 in 10? but no increased pain with passive range of motion in the 30-70 degree arc but lowering then below about 15?, pain worsens again. Opposite testing in the left leg is completely normal. Extremity: Common normals: normal to inspection, full ROM and normal capillary refill Other: No point bony tenderness to the pelvis. Range of motion in right hip is normal. Mild tenderness over right greater trochanter bursa area, seems chronic per her description. Both wrists with normal range of motion, no deformity, no point bony tenderness. No bruising. Neuro: Mchenry Coma Scale: document GCS findings (15) Common normals: moves all extremities and no focal motor deficits Sensorium/orientation: alert Speech: speech normal Motor exam: no tremor noted and no movement abnormalities noted Psych: Appearance: well kempt Attitude: engaged Activity/motor behavior: appropriate eye contact Insight: insight good Judgement: judgment good Skin: Common normals: no rashes or lesions noted Narrative: No broken skin or abrasions General skin exam: no rashes or lesions noted Course Course ED Course: 59-year-old female with mechanical type fall in parking lot, witness. No head injury. Exam is not suggestive of any acute neurological deficit, fracture or other major injury. Suggestive of lumbar muscle strain. Counseled patient on findings. Imaging is not recommended. Will give Toradol 30 mg IM, Flexeril, hydrocodone. Counseled on rest for the next 48 hours, NSAIDs, Tylenol, heat. Prescriptions for Flexeril and Toradol provided. Consider chiropractic manipulation. If symptoms are not markedly improving in 3 days, we recommend re -evaluation with primary care doctor to discuss longer work restrictions. Alarm symptoms reviewed that would warrant ED presentation like sudden loss of urinary control, movement deficits, severe worsening. Written instructions provided, all questions answered. Reevaluation(s) Time of Reevaluation #1: 02:29 Reevaluation #1: Patient re-evaluated 30 minutes after medications, reports that the pain has gone from a 13 down to a 5. No signs of respiratory distress or other allergy signs from the Toradol. Counseled patient on plan. Suspect that this is a simple muscle strain, should improve within a few days but will take a couple of weeks to fully heal. Discussion as above. Vital Signs Vital signs: Initial Vital Signs Temperature 97.1 F L 10/30/24 00:25 Temperature Source Temporal Artery Scan 10/30/24 00:25 Pulse Rate 70 10/30/24 00:25 Respiratory Rate 20 10/30/24 00:25 Blood Pressure 125/81 10/30/24 00:25 Blood Pressure Mean 95 10/30/24 00:25 Blood Pressure Position Semi-Fowlers 10/30/24 00:25 Pulse Oximetry 95 10/30/24 00:25 Oxygen Delivery Method Room Air 10/30/24 00:25 Vital Signs Temperature 97.1 F L 10/30/24 00:25 Pulse Rate 70 10/30/24 00:25 Respiratory Rate 20 10/30/24 00:25 Blood Pressure 125/81 10/30/24 00:25 Pulse Oximetry 95 10/30/24 00:25 Oxygen Delivery Method Room Air 10/30/24 00:25 Temperature 97.1 F L 10/30/24 00:25 Pulse Rate 70 10/30/24 00:25 Respiratory Rate 20 10/30/24 00:25 Blood Pressure 125/81 10/30/24 00:25 Pulse Oximetry 95 10/30/24 00:25 Oxygen Delivery Method Room Air 10/30/24 00:25 Medications Administered Medications: Discontinued Medications Generic Name Dose Route Start Last Admin Trade Name Freq PRN Reason Stop Dose Admin Hydrocodone Bitart/Acetaminophen 1 tab 10/30/24 01:36 10/30/24 01:51 Hydrocodone-Acetamin 5-325 Mg 1 Tab PO 10/30/24 01:37 1 tab ONCE ONE Administration Cyclobenzaprine HCl 5 mg 10/30/24 01:36 10/30/24 01:51 Cyclobenzaprine Hcl 10 Mg Tablet PO 10/30/24 01:37 5 mg ONCE ONE Administration Ketorolac Tromethamine 30 mg 10/30/24 01:36 10/30/24 01:51 Ketorolac 30 Mg/Ml Inj IM 10/30/24 01:37 30 mg ONCE ONE Administration Discharge Plan Discharge Clinical Impression: Lumbar spine strain Patient Disposition: Home w/ Parent or Adult Condition: Improved Instructions: Low Back Strain (ED), Lower Back Exercises (ED) Additional Instructions: As we discussed, there does not seem to be any signs of major nerve injury, back fracture or serious injury today. This is good news. Your given Toradol which is an anti-inflammatory pain medication, a small dose of hydrocodone and some Flexeril. The Flexeril as a muscle relaxant and it may cause drowsiness. I provided you with a prescription for this. Would recommend that you take half a pill if needed during the day and a full pill at bedtime. Try not to use within 6 hours of awakening at night, as it may cause too much drowsiness. I do recommend Tylenol 1000 mg every 6 hours as needed for pain. I have also prescribed with prescription for Toradol which is the nonnarcotic anti- inflammatory medication. You may take 1 pill up to every 6 hours as needed for discomfort. This is in the same family as Aleve and ibuprofen so I would not recommend that you take those on top of the Toradol. Once you are out of the Toradol, you may switch back to either Aleve or ibuprofen. I do recommend that you follow-up with a chiropractor never choosing for adjustments. I have provided you with some low back exercises. Heat tends to be helpful for this as well as Mentholatum muscle rubs and other similar treatments. No work for today or tomorrow, may return Monday if her symptoms have improved. If symptoms persist, I would recommend that you follow-up with a primary care provider to discuss longer work restrictions, referral to physical therapy and other more in depth treatments. Rest and light activity only for the next 48 hours. Activity Level: Activity as Tolerated Discharge Diet: Regular Prescriptions: New cyclobenzaprine 10 mg tablet 5 - 10 mg PO BID PRN (Reason: muscle spasm) Qty: 20 0RF ketorolac 10 mg tablet 10 mg PO Q6H PRN (Reason: pain) 5 Days Qty: 20 1RF No Action fluoxetine 40 mg capsule 40 mg PO QDAY Qty: 90 3RF bupropion HCl [Wellbutrin XL] 150 mg tablet extended release 24 hr 150 mg PO QAM Qty: 90 3RF hydroxyzine HCl 10 mg tablet 10 - 30 mg PO TID PRN (Reason: itching) Qty: 180 1RF Wegovy 0.25 mg/0.5 mL pen injector 0.25 mg subcut QWEEK Qty: 2 0RF Rx Instructions: administer weeks 1 through 4 of therapy Follow Up/Referrals: Jodi Tran MD [Primary Care Provider] - Stand Alone Forms: [facility] Info Instructions
== END 2024-10-30 03:00 | disposition home or self-care (01) ==
LOC: ED 01:40
PROVIDERS: Emergency Provider Family Medicine; PCP Family Medicine
DX: S39.012A Strain of muscle, fascia and tendon of lower back, initial encounter (principal); W18.39XA Other fall on same level, initial encounter; Y93.01 Activity, walking, marching and hiking; Y92.481 Parking lot as the place of occurrence of the external cause
CPT/HCPCS: 96372; 99283; 99284; A9270; J1885

== ENCOUNTER 2024-11-18 07:30 | Outpatient (RCR) | payer OTHER, SELFPAY | END 2025-03-18 23:59 | disposition home or self-care (01) | PROVIDERS: PCP Family Medicine; Visit Provider Family Medicine | DX: M79.606 Pain in leg, unspecified (principal); M76.31 Iliotibial band syndrome, right leg; Z51.89 Encounter for other specified aftercare | CPT/HCPCS: 97032; 97110; 97140; 97161 ==